=== PATIENT | female | born 1985 | race Hispanic/Latino ===

== ENCOUNTER 2020-04-26 12:09 | Emergency (ER) | payer BC, OTHER ==
[2020-04-26 18:12] LABS: SARS-CoV-2 MS2 Positive; SARS-CoV-2 N Gene Negative; SARS-CoV-2 S Gene Negative; SARS-CoV-2 orf1ab Negative
== END 2020-04-26 13:02 | disposition home or self-care (01) ==
LOC: ERS 12:09
DX: Z20.828 Contact with and (suspected) exposure to other viral communicable diseases (principal); F32.9 Major depressive disorder, single episode, unspecified
CPT/HCPCS: 87635; 99283; U0003

== ENCOUNTER 2020-05-10 07:32 | Outpatient (CLI) | payer BC ==
--- NOTE | 2020-05-10 08:06 | ULT ---
ULTRASOUND PELVIC DOPPLER DUPLEX: DATE: 05/10/2020 HISTORY: 35-year-old female with pelvic pain for one month TECHNIQUE: Transabdominal transducer used to visualize intrapelvic contents with grayscale, color-flow, and spec tral analysis. FINDINGS: Uterus: 11.5 x 6 x 5 cm. Endometrial stripe: 1.3 cm (13 mm). Uterine fibroids: None identified. Right ovary: 3.7 x 3.0 x 4.6 cm. Left ovary: 2.8 x 3.3 x 1.7 cm. 2.2 x 2.2 x 1.7 cm right ovarian cyst. Blood flow densities in bilateral ovaries. Tiny amount of free fluid in cul-de-sac. IMPRESSION: No significant pathology identified.
== END 2020-05-10 07:33 | disposition home or self-care (01) ==
LOC: BICULT 07:32
PROVIDERS: ATTEND Family Medicine
DX: N92.0 Excessive and frequent menstruation with regular cycle (principal)
CPT/HCPCS: 76856

== ENCOUNTER 2020-09-12 08:56 | Outpatient (CLI) | payer BC, OTHER ==
[2020-09-12 17:54] LABS: Hemoglobin 12.5 g/dL (12.0-16.0); Mean Corpuscular Hemoglobin 30.4 pg (27.0-31.0); Mean Corpuscular Volume 89.4 fL (78.0-98.0); Mean Platelet Volume 8.5 fL (7.4-10.4); Platelet Count 359 thou/uL (130-400); RBC Distribution Width 12.4 % (11.5-14.5); Red Blood Cell (RBC) Count 4.12 mill/uL (4.20-5.40); White Blood Cell (WBC) Count 9.5 thou/uL (4.8-10.8)
[2020-09-12 18:16] LABS: BHCG - Serum Negative (NEGATIVE); Pregs Control Background? CLEAR/WHITE (CLR/WHITE); Pregs Control Bar Appear? YES (CONTROL BAR)
[2020-09-13 11:00] LABS: SARS-CoV-2 MS2 Positive; SARS-CoV-2 N Gene Negative; SARS-CoV-2 S Gene Negative; SARS-CoV-2 by NAA Not Detected (NotDetected); SARS-CoV-2 orf1ab Negative
== END 2020-09-12 08:57 | disposition home or self-care (01) ==
LOC: LABBT 08:56
PROVIDERS: ATTEND Obstetrics & Gynecology
DX: Z01.812 Encounter for preprocedural laboratory examination (principal); Z20.828 Contact with and (suspected) exposure to other viral communicable diseases; N92.0 Excessive and frequent menstruation with regular cycle; R10.2 Pelvic and perineal pain
CPT/HCPCS: 84703; 85027; 86850; 86900; 86901; 87635; U0003

== ENCOUNTER 2020-09-16 07:46 | Day surgery (SDC) | payer BC ==
--- NOTE | 2020-09-12 18:52 | HP ---
HISTORY OF PRESENT ILLNESS: Ms. Littlejohn is a 35-year-old Latin-[place] female, G4, P4, with four vaginal deliveries. She has had a tubal ligation in the past. She has been having increasingly heavy and very painful periods since the last delivery. She has tried oral contraceptives in the past, which were not beneficial. She is on nonsteroidals and has chronic menstrual like cramping pain symptoms which intensifies significantly on her menstrual cycle. She also has dyspareunia. She is a patient of Dr. Rachell Boston and reports a normal Pap smear within the past year. She was referred by Dr. Boston for the heavy periods and pain and dysmenorrhea. She was evaluated in my office on 07/16/2020. Transvaginal ultrasound in my office was performed showing the uterus to be globularly enlarged at 11.94 x 7.7 x 5.8 cm with thickened endometrial lining of 27.8 mm. Endometrial biopsy was obtained showing benign findings and proliferative endometrium. There were no adnexal masses seen on the ultrasound. PAST MEDICAL HISTORY: Otherwise negative. PAST SURGICAL HISTORY: Tubal ligation. OB HISTORY: Four vaginal deliveries. FAMILY HISTORY: Noncontributory. ALLERGIES: SHE HAS NO KNOWN DRUG ALLERGIES. PHYSICAL EXAMINATION: VITAL SIGNS: Her height is 5 feet 1 inch, weight of 180 pounds, and BMI of 34, blood pressure is 128/76, pulse 70, respiratory rate is 18, O2 saturation on room air 99%. HEENT: Within normal limits. CHEST: Clear to auscultation. HEART: Regular rate and rhythm. S1, S2 heart sounds. No murmurs, rubs, or gallops. ABDOMEN: Soft, nontender, nondistended with no palpable masses. PELVIC: Vulva and vagina had no lesions. Cervix had no lesions. Uterus was then enlarged globularly and tender. Adnexa were nontender with no masses. ASSESSMENT: This is a 35-year-old Latin-[place] female G4, P4 with tubal ligation with long history of heavy menstrual bleeding and chronic pelvic pain along with dysmenorrhea. Findings in clinical scenario are consistent with adenomyosis of the uterus. The patient is desiring definitive surgical therapy. PLAN: Plan is to proceed with robotic total laparoscopic hysterectomy with bilateral salpingectomy. This is scheduled for 09/16/2020. Risks and benefits of procedure have been discussed in detail. Job ID: [id number]
[2020-09-13 12:37] VITALS: BMI 33.4
[2020-09-16] MEDS ORDERED: Gabapentin 300 MG CAP ONE (08:06)
[2020-09-16] MEDS ORDERED: CeleCOXIB 100 MG CAP ONE (08:06)
[2020-09-16] MEDS ORDERED: Famotidine/PF 20 mg/2ml Vial ONE (08:07)
[2020-09-16] MEDS ORDERED: Ondansetron PF 4 MG/2 ML Vial ONE (09:31)
[2020-09-16] MEDS ORDERED: PROPOFOL 200 MG/20 ML VIAL ONE (09:31)
[2020-09-16] MEDS ORDERED: Glycopyrrolate 0.2 MG/ML 5 ML SYRINGE ONE (09:31)
[2020-09-16] MEDS ORDERED: Dexamethasone 20 MG/5 ML VIAL ONE (09:31)
[2020-09-16] MEDS ORDERED: PHENYLEPHRINE-NS 100 MCG/ML 10 ML SYRINGE ONE (09:31)
[2020-09-16] MEDS ORDERED: Rocuronium Bromide 10 MG/ML (10ML VIAL) ONE (09:31)
[2020-09-16] MEDS ORDERED: Lidocaine 1% PF 5 ML VIAL ONE (09:31)
[2020-09-16] MEDS ORDERED: Lidocaine 2% Jelly 5 ML TUBE ONE (09:50)
[2020-09-16] MEDS ORDERED: Fentanyl 250 MCG/5 ML VIAL ONE (09:50)
[2020-09-16] MEDS ORDERED: Midazolam HCl 2 mg/2 ml Vial ONE (09:50)
[2020-09-16] MEDS ORDERED: HYDROmorphone 0.5 MG/0.5 ML SYRINGE ONE (09:52)
[2020-09-16] MEDS ORDERED: Bupivacaine PF 0.5% 30 ML VIAL ONE (09:57)
[2020-09-16] MEDS ORDERED: Lidocaine 1% w/Epinephrine 1:100K 20 ML VIAL ONE (09:57)
[2020-09-16] MEDS ORDERED: Fentanyl 100 MCG/2 ML VIAL ONE ×2 (10:00→12:20)
[2020-09-16] MEDS ORDERED: Promethazine HCl 25 MG/ML VIAL IM PRN ×2 (12:08→13:45)
[2020-09-16] MEDS ORDERED: Meperidine HCl/PF 25 MG/ML VIAL SLOW IVP PRN (12:08)
[2020-09-16] MEDS ORDERED: HYDROmorphone 2 MG/ML VIAL SLOW IVP PRN (12:08)
[2020-09-16] MEDS ORDERED: Ondansetron HCl/PF 4 MG/2 ML Vial IVP PRN (12:08)
[2020-09-16] MEDS ORDERED: Promethazine HCl 25 MG/ML VIAL SLOW IVP PRN (12:08)
[2020-09-16] MEDS ORDERED: Ketorolac Tromethamine 30 MG/ML VIAL IVP PRN (12:08)
[2020-09-16] MEDS ORDERED: Acetaminophen/Codeine 30-300mg Tablet PO PRN (13:45)
[2020-09-16] MEDS ORDERED: Acetaminophen 325 MG TAB PO PRN (13:45)
[2020-09-16] MEDS ORDERED: diphenhydrAMINE 25 MG CAP PO PRN (13:45)
[2020-09-16] MEDS ORDERED: Morphine 2 MG/ML VIAL SLOW IVP PRN (13:45)
[2020-09-16] MEDS ORDERED: Bisacodyl 10 MG SUPP PR PRN (13:45)
[2020-09-16] MEDS ORDERED: Simethicone Chewable 80 MG TAB PO PRN (13:45)
[2020-09-16] MEDS ORDERED: traMADol HCl 50 MG TAB PO PRN ×2 (13:45)
[2020-09-16] MEDS ORDERED: Ibuprofen 800 MG TAB PO SCH (14:00)
[2020-09-16] MEDS: Lactated Ringer's 1,000 ML IV SCH ×2 (14:19→22:03)
--- NOTE | 2020-09-16 14:40 | OP ---
DATE OF PROCEDURE: 09/16/2020 PREOPERATIVE DIAGNOSES: 1. A 35-year-old Latin-[place] female, G3, P3 with prior tubal ligation with menorrhagia and dysmenorrhea unresponsive to medical management. 2. Clinical adenomyosis. POSTOPERATIVE DIAGNOSES: 1. A 35-year-old Latin-[place] female, G3, P3 with prior tubal ligation with menorrhagia and dysmenorrhea unresponsive to medical management. 2. Clinical adenomyosis. PROCEDURES PERFORMED: Robotic total laparoscopic hysterectomy, bilateral salpingectomy. CASE MANAGEMENT COORDINATOR SURGEON: Kusum Griffith MD ANESTHESIA: General endotracheal. ESTIMATED BLOOD LOSS: 25 mL. COMPLICATIONS: None. COUNTS: Correct x2. PATHOLOGY: Uterus, cervix, and bilateral fallopian tubes. ANTIBIOTICS: 2g Ancef on-call to OR. FINDINGS: 1. Globularly enlarged uterus consistent with adenomyosis. 2. Normal fallopian tubes and ovaries. 3. Clear urine present in Culp catheter postprocedure and bilateral ureteral peristalsis noted postprocedure. DISPOSITION: Recovery room, stable. DESCRIPTION OF PROCEDURE: The patient previously received informed consent in regard to surgery. She was taken back to the operating room, where she received a general endotracheal anesthetic agent without complications. She was placed in the dorsal lithotomy position with the use of Juan stirrups and prepped and draped in usual sterile fashion. Culp catheter was placed at this time and a side-arm speculum was placed in the vagina. Anterior lip of cervix was grasped with single-tooth tenaculum. The uterus sounded to 11 cm. A size 10 cm MARK uterine manipulator was placed along with a 4.0 cm cervical cup. Speculum and tenaculum were removed. Attention was then turned to the abdomen where perspective trocar sites were infiltrated with 0.5% Marcaine with epinephrine. A 12 mm supraumbilical incision was made. This was carried down to the fascia with a hemostat. Veress needle was then placed through the incision and the patient's pressure was noted to be less than 5 mmHg. The abdomen was insufflated for the patient pressure of 15, approximately 5 L of carbon dioxide gas. A size 12 mm trocar was then placed through the supraumbilical incision. Laparoscope was then introduced through trocar sleeve and proper entry was confirmed. Additional bilateral lower quadrant 8 mm trocars along with the right upper quadrant 11 mm trocars were placed under laparoscopic guidance. The robot was then docked after the patient was placed in Trendelenburg position and I broke scrub and then proceeded to carry out the procedure from the operative console while my assistants remained at the bedside. Uterus was elevated from the pelvis with the previously mentioned findings. My construction management assistant grabbed the left fallopian tube with atraumatic grasper. Utilizing the bipolar fenestrated cautery and monopolar scissors, I then incised the remnant of the fallopian tube, coagulating and transecting this and this was brought out through the right upper quadrant construction management assistant port. The left utero-ovarian ligament was then coagulated and transected and serial coagulation of the broad ligament hugging close to uterine specimen was carried out until the left round ligament was reached. It was coagulated and transected. The anterior leaf of the broad ligament was then entered. Vesicouterine peritoneum was incised in layering technique both sharply and bluntly, dropping the bladder past the cervical vaginal margin. The uterine vessels on the left side were then skeletonized in a layering technique also and cauterized in the internal cervical os region. This was carried down in similar fashion on the right side, where again the right fallopian tube was coagulated in the mesosalpinx, excised and removed in the right upper quadrant port. The right utero-ovarian ligament was coagulated and transected and serial coagulation of broad ligament again hugging close to specimen was done until the right round ligament was reached. It was coagulated and transected and the anterior leaf of the broad ligament again was entered dissecting the vesicouterine peritoneum that remained in a layering technique meeting in the midline. The bladder was then carefully dissected atraumatically past the cervical vaginal margin in a layering technique. Right uterine vessels again were skeletonized and coagulated in internal cervical os region. We then performed the anterior colpotomy starting at the 12 to 3 and 12 to 9 o'clock position and then the posterior colpotomy was completed from 6 to 9 and 6 to 3 o'clock. The specimen was then delivered into the vaginal vault. The monopolar scissor was switched out with a Conor needle special needs bus driver and this allowed for me to grasp the vaginal cuff and coagulate any areas of bleeding that was noted with bipolar fenestrated cautery. My construction management assistant then brought in a Stratafix suture and I closed the vaginal cuff starting at the right angle full-thickness closure to the left angle and back towards the midline securing the vaginal cuff and confirming hemostasis. The pelvis was then irrigated and all the pedicle sites were inspected. Any oozing was grasped with bipolar fenestrated cautery at the pedicle site line and coagulated, securing hemostasis. Bilateral ureteral peristalsis was noted on each pelvic sidewall and the ureteral path appeared to be below the pedicle sites. Clear urine was draining from the Culp catheter. The robot was then undocked. Trocar sleeves were removed. I placed a [id number] stitch of 0 Vicryl in the fascial defect in the umbilical region. The remainder of the trocar sites were closed with 4-0 Monocryl subcuticular with Dermabond. The vaginal vault was inspected and noted to be hemostatic. The patient was awakened from anesthesia and transferred to recovery room in stable condition. Job ID: [id number]
[2020-09-16] MEDS: Ibuprofen 800 MG TAB PO SCH (22:10)
[2020-09-17 05:23] LABS: Hemoglobin 11.9 g/dL (12.0-16.0); Mean Corpuscular HGB CONC 33.6 g/dL (32.0-36.0); Mean Corpuscular Hemoglobin 30.7 pg (27.0-31.0); Mean Corpuscular Volume 91.3 fL (78.0-98.0); Mean Platelet Volume 8.3 fL (7.4-10.4); Platelet Count 331 thou/uL (130-400); RBC Distribution Width 12.3 % (11.5-14.5); Red Blood Cell (RBC) Count 3.89 mill/uL (4.20-5.40); White Blood Cell (WBC) Count 17.6 thou/uL (4.8-10.8)
[2020-09-17] MEDS: Lactated Ringer's 1,000 ML IV SCH (06:02)
[2020-09-17] MEDS: Ibuprofen 800 MG TAB PO SCH (06:05)
--- NOTE | 2020-09-17 07:10 | PDOC.EVN ---
Event Note - Event Note Event Note: Tolerating diet, voiding, good pain control... O: T99 BP 106/65 R16 P76 U/o 1325 ml.... ABD:soft/non-tender. Trochar sites clean, dry, intact. A/P: Post op day 1 robotic TLH/BS.....doing well. Discharge home. F/u 2 and 6 weeks...
[2020-09-17 07:55] VITALS: BP 121/71; TEMP 98.4
--- NOTE | 2020-09-18 02:31 | DIS ---
DATE OF ADMISSION: 09/16/2020 DATE OF DISCHARGE: 09/17/2020 DIAGNOSES: 1. Menorrhagia. 2. Dysmenorrhea. 3. Clinical adenomyosis of the uterus. PROCEDURE PERFORMED: Robotic TLH with bilateral salpingectomy. SUMMARY OF HOSPITAL COURSE: Ms. Littlejohn is a 35-year-old Latin-[place] female, who had continued heavy menstrual bleeding and chronic pelvic pain with severe dysmenorrhea that has not responded to medical therapy, including oral contraceptives. She has had a tubal ligation in the past and desired definitive surgical therapy. She underwent a robotic total laparoscopic hysterectomy and bilateral salpingectomy on 09/16. Postoperatively, the patient has done well. This morning, she is ambulating, tolerating regular diet, having adequate pain control, and voiding without difficulty. Her hematocrit on postop day 1 is 35.5. She will be discharged home this morning. Pathology is pending. DISCHARGE MEDICATIONS: Will be: 1. Tramadol 50 mg q.6 hours p.r.n. pain. 2. Kzrm-shr-[id number] ibuprofen 400 q.4 hours. FOLLOWUP: She has a followup in 2 and 6 weeks. Job ID: [id number]
== END 2020-09-17 09:36 | disposition home or self-care (01) ==
LOC: SDC 07:46 → 3SE 11:50 → SDC 09-17 09:36
PROVIDERS: ATTEND Obstetrics & Gynecology
PROC: 0UT94ZZ Resection of Uterus, Percutaneous Endoscopic Approach (ICD-10-PCS; principal; 2020-09-17)
PROC: 0UT74ZZ Resection of Bilateral Fallopian Tubes, Percutaneous Endoscopic Approach (ICD-10-PCS; principal; 2020-09-17)
DX: N80.0 Endometriosis of uterus (principal)
CPT/HCPCS: 36415; 85027; 88307; J0690; J1100; J1170; J2250; J2405; J2704; J3010; S0020; S0028

== ENCOUNTER 2024-02-16 11:35 | Outpatient (CLI) | payer BC | END 2024-02-16 11:36 | disposition home or self-care (01) | LOC: BICRAD 11:35 | PROVIDERS: ATTEND Family Medicine | DX: R06.00 Dyspnea, unspecified (principal) | CPT/HCPCS: 71046 ==